=== PATIENT | male | born 2000 | race Caucasian/White ===

== ENCOUNTER 2019-01-29 08:18 | Emergency (ER) | payer OTHER ==
[~2019-01-29] VITALS: Ht 188 cm; Wt 84.1 kg
[2019-01-29] MEDS ORDERED: KETOROLAC 30 MG/ML VIAL (J1885) IV ONE (09:45)
--- NOTE | 2019-01-29 10:02 | REP ---
Chest x-ray: Two views. History: Chest pain . Comparison study: No comparison . Findings: The lungs are well inflated and free of infiltrate. The pleural angles are sharp. The heart size is normal. Pulmonary vasculature is not increased. No significant bony abnormality is seen. Impression: Negative chest x-ray. Electronically Signed by Kaiser Regalado MD 01/29/2019 09:52 A
[2019-01-29 10:04] LABS: BASO # 0.1 10^3/uL (0.0-0.2); BASO % 1.4 % (0.0-1.0); EOS # 0.2 10^3/uL (0.0-0.50); EOS % 2.9 % (0.0-3.0); HEMATOCRIT 43.9 % (42.0-52.0); LYMPH # 2.4 10^3/uL (1.5-6.5); LYMPH % 36.4 % (24.0-44.0); MEAN CORPUSCULAR HEMOGLOBIN 29.4 pg (27.0-33.0); MEAN CORPUSCULAR HGB CONC 31.9 g/dl (32.0-36.5); MEAN CORPUSCULAR VOLUME 92.2 fl (80.0-96.0); MONO # 0.4 10^3/uL (0.0-0.8); MONO % 6.5 % (0.0-5.0); NEUTROPHILS # 3.5 10^3/uL (1.8-7.7); NEUTROPHILS % 52.6 % (36.0-66.0); PLATELET COUNT, AUTOMATED 292 10^3/uL (150-450); RED BLOOD COUNT 4.76 10^6/uL (4.30-6.10); WHITE BLOOD COUNT 6.6 10^3/uL (4.0-10.0)
[2019-01-29 10:38] LABS: ALBUMIN 4.5 GM/DL (3.2-5.2); ALT/SGPT 16 U/L (12-78); BILIRUBIN,DIRECT 0.2 MG/DL (0.0-0.2); BILIRUBIN,TOTAL 0.7 MG/DL (0.2-1.0); BLOOD UREA NITROGEN 17 MG/DL (7-18); CALCIUM LEVEL 9.9 MG/DL (8.5-10.1); CARBON DIOXIDE LEVEL 31 MEQ/L (21-32); CHLORIDE LEVEL 104 MEQ/L (98-107); CK-MB VALUE MASS < 1.0 NG/ML (<3.6); CPK CREATINE PHOSPHOKINASE 68 U/L (39-308); GLUCOSE, FASTING 83 MG/DL (70-100); LIPASE 96 U/L (73-393); MB/CK RELATIVE INDEX 1.47 (< OR =4); NT-PRO BNP 23 PG/ML (<125); POTASSIUM SERUM 4.6 MEQ/L (3.5-5.1); SODIUM LEVEL 139 MEQ/L (136-145); TOTAL PROTEIN 8.4 GM/DL (6.4-8.2); TROPONIN I < 0.02 NG/ML (< 0.10)
[2019-01-29 11:11] VITALS: BP 115/78
--- NOTE | 2019-01-29 20:57 | ECGEPIP ---
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
== END 2019-01-29 11:12 | disposition home or self-care (01) ==
LOC: M ED 08:18
DX: R07.89 Other chest pain (principal)
CPT/HCPCS: 71046; 80048; 80076; 82550; 82553; 83690; 83880; 84443; 84484; 85025; 85379; 93005; 96374; 99284; J1885

== ENCOUNTER 2019-06-10 17:55 | Emergency (ER) | payer OTHER ==
[~2019-06-10] VITALS: Ht 188 cm; Wt 97.4 kg
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
[2019-06-10 19:43] VITALS: BP 122/68
== END 2019-06-10 19:47 | disposition home or self-care (01) ==
LOC: M ED 17:55
DX: M25.511 Pain in right shoulder (principal); X50.9XXA Other and unspecified overexertion or strenuous movements or postures, initial encounter; Y92.89 Other specified places as the place of occurrence of the external cause; Y93.9 Activity, unspecified; Y99.0 Civilian activity done for income or pay; M79.601 Pain in right arm

== ENCOUNTER → 2020-08-27 | Outpatient (CLI) | payer SELFPAY | LOC: M LABSMTC 13:06 | PROVIDERS: ATTEND Pediatrics | DX: Z20.828 Contact with and (suspected) exposure to other viral communicable diseases (principal) ==

== ENCOUNTER → 2020-10-22 | Outpatient (CLI) | payer SELFPAY | LOC: M LABSMTC 11:15 | PROVIDERS: ATTEND Pediatrics | DX: Z20.822 Contact with and (suspected) exposure to COVID-19 (principal) ==

== ENCOUNTER 2020-12-03 23:58 | Emergency (ER) | payer OTHER ==
[~2020-12-03] VITALS: Ht 188 cm; Wt 102.9 kg
[2020-12-04 01:21] LABS: BASO # 0.1 10^3/uL (0.0-0.2); BASO % 0.9 % (0.0-1.0); EOS # 0.3 10^3/uL (0.0-0.5); EOS % 3.6 % (0.0-3.0); HEMATOCRIT 39.9 % (42.0-52.0); HEMOGLOBIN 12.9 g/dl (13.5-17.5); LYMPH # 2.2 10^3/uL (1.5-5.0); LYMPH % 27.1 % (24.0-44.0); MEAN CORPUSCULAR HEMOGLOBIN 30.2 pg (27.0-33.0); MEAN CORPUSCULAR HGB CONC 32.3 g/dl (32.0-36.5); MEAN CORPUSCULAR VOLUME 93.4 fl (80.0-96.0); MONO # 0.7 10^3/uL (0.0-0.8); MONO % 8.8 % (2.0-8.0); NEUTROPHILS # 4.8 10^3/uL (1.5-8.5); NEUTROPHILS % 59.2 % (36.0-66.0); PLATELET COUNT, AUTOMATED 283 10^3/uL (150-450); RED BLOOD COUNT 4.27 10^6/uL (4.30-6.10); WHITE BLOOD COUNT 8.1 10^3/uL (4.0-10.0)
[2020-12-04 01:46] LABS: ALBUMIN 3.9 GM/DL (3.2-5.2); ALT/SGPT 28 U/L (12-78); BILIRUBIN,DIRECT 0.1 MG/DL (0.0-0.2); BILIRUBIN,TOTAL 0.3 MG/DL (0.2-1.0); BLOOD UREA NITROGEN 16 MG/DL (7-18); CALCIUM LEVEL 8.7 MG/DL (8.5-10.1); CARBON DIOXIDE LEVEL 27 MEQ/L (21-32); CHLORIDE LEVEL 106 MEQ/L (98-107); CREATININE FOR GFR 0.83 MG/DL (0.70-1.30); GLOMERULAR FILTRATION RATE > 60.0 (>60); GLUCOSE, FASTING 93 MG/DL (70-100); SODIUM LEVEL 139 MEQ/L (136-145); TOTAL PROTEIN 7.9 GM/DL (6.4-8.2)
[2020-12-04 02:15] VITALS: BP 126/65
--- NOTE | 2020-12-04 06:48 | ECGEPIP ---
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
== END 2020-12-04 02:23 | disposition home or self-care (01) ==
LOC: M ED 23:58
DX: R07.89 Other chest pain (principal)

== ENCOUNTER 2020-12-25 06:32 | Emergency (ER) | payer OTHER ==
[~2020-12-25] VITALS: Ht 188 cm; Wt 102.7 kg
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
[2020-12-25] MEDS ORDERED: NAPROXEN 250 MG TAB PO ONE (08:40)
[2020-12-25 08:59] VITALS: O2SAT 99
[2020-12-25] MEDS ORDERED: NAPR-837 PO (09:10)
[2020-12-25 09:26] VITALS: BP 135/78
--- NOTE | 2020-12-26 10:14 | ED PDOC ---
Post-Departure Follow-Up radiology report faxed to [facility] Mikayla Jose MD Dec 26, 2020 10:14
== END 2020-12-25 09:30 | disposition home or self-care (01) ==
LOC: M ED 06:32
DX: S43.102A Unspecified dislocation of left acromioclavicular joint, initial encounter (principal); S16.1XXA Strain of muscle, fascia and tendon at neck level, initial encounter; V48.5XXA Car driver injured in noncollision transport accident in traffic accident, initial encounter; Y92.9 Unspecified place or not applicable; Y93.9 Activity, unspecified; Y99.9 Unspecified external cause status

== ENCOUNTER 2021-04-13 09:56 | Day surgery (SDC) | payer OTHER ==
[~2021-04-13] VITALS: Ht 188 cm; Wt 110.1 kg
[~2021-04-13 09:56] MED LIST: HYDR50TA70 PO; NAPR-837 PO; NS 1,000 ML IV ONE; VITA1CAP25 PO
[2021-04-13] MEDS ORDERED: LIDOCAINE 2% 100MG/5ML SDV (FOR ANES.) As Ordered ONE (11:41)
[2021-04-13] MEDS ORDERED: fentaNYL 100 MCG/2 ML INJECTION (J3010) As Ordered ONE (11:41)
[2021-04-13] MEDS ORDERED: propofoL 200 MG/20 ML VIAL As Ordered ONE ×3 (11:41→12:29)
--- NOTE | 2021-04-13 12:57 | ROOR ---
Patient Name: Melissa Garcia Procedure Date: 04/13/2021 12:21 PM Date of : 2000 Age: 20 Room: [facility] Gender: Male Note Status: Finalized Procedure: Upper GI endoscopy Indications: Nausea with vomiting Providers: Eder Alexander MD Referring MD: FREDERICK MACK MD Requesting Provider: Medicines: Monitored Anesthesia Care Complications: No immediate complications. Procedure: Pre-Anesthesia Assessment: - Prior to the procedure, a History and Physical was performed, and patient medications and allergies were reviewed. The patient is competent. The risks and benefits of the procedure and the sedation options and risks were discussed with the patient. All questions were answered and informed consent was obtained. Patient identification and proposed procedure were verified by the physician, the nurse and the anesthesiologist in the procedure room. Mental Status Examination: alert and oriented. Airway Examination: normal oropharyngeal airway and neck mobility. Respiratory Examination: clear to auscultation. CV Examination: normal. Prophylactic Antibiotics: The patient does not require prophylactic antibiotics. Prior Anticoagulants: The patient has taken no previous anticoagulant or antiplatelet agents. ASA Grade Assessment: II - A patient with mild systemic disease. After reviewing the risks and benefits, the patient was deemed in satisfactory condition to undergo the procedure. The anesthesia plan was to use monitored anesthesia care (MAC). Immediately prior to administration of medications, the patient was re-assessed for adequacy to receive sedatives. The heart rate, respiratory rate, oxygen saturations, blood pressure, adequacy of pulmonary ventilation, and response to care were monitored throughout the procedure. The physical status of the patient was re-assessed after the procedure. The Endoscope was introduced through the mouth, and advanced to the second part of duodenum. The upper GI endoscopy was accomplished without difficulty. The patient tolerated the procedure well. Findings: The Z-line was irregular and was found 40 cm from the incisors. Scattered mild inflammation characterized by erythema, friability and granularity was found in the gastric antrum. Biopsies were taken with a cold forceps for Helicobacter pylori testing. Verification of patient identification for the specimen was done by the physician and nurse using the patient's name, date and medical record number. Estimated blood loss was minimal. The duodenal bulb and second portion of the duodenum were normal. Biopsies for histology were taken with a cold forceps for evaluation of celiac disease. Impression: - Z-line irregular, 40 cm from the incisors. - Gastritis. Biopsied. - Normal duodenal bulb and second portion of the duodenum. Biopsied. Recommendation: - Patient has a contact number available for emergencies. The signs and symptoms of potential delayed complications were discussed with the patient. Return to normal activities tomorrow. Written discharge instructions were provided to the patient. - High fiber diet. - Continue present medications. - Await pathology results. - Follow an antireflux regimen. - Telephone GI clinic for pathology results in 2 weeks. - Return to GI clinic if persistent symptoms or new symptoms. - Return to primary care physician. Procedure Code(s): --- Professional --- 78633, Esophagogastroduodenoscopy, flexible, transoral; with biopsy, single or multiple Diagnosis Code(s): --- Professional --- K22.8, Other specified diseases of esophagus K29.70, Gastritis, unspecified, without bleeding R11.2, Nausea with vomiting, unspecified CPT copyright 2019 [employer]. All rights reserved. The codes documented in this report are preliminary and upon extractor puller review may be revised to meet current compliance requirements. Eder Alexander MD Eder Alexander MD 04/13/2021 12:57:06 PM Electronically signed by Eder Alexander MD Number of Addenda: 0 Note Initiated On: 04/13/2021 12:21 PM Estimated Blood Loss: Estimated blood loss was minimal.
[2021-04-13 13:10] VITALS: BP 122/78
--- NOTE | 2021-04-13 13:30 | ROOR ---
Patient Name: Melissa Garcia Procedure Date: 04/13/2021 12:22 PM Date of : 2000 Age: 20 Room: [facility] Gender: Male Note Status: Finalized Procedure: Colonoscopy Indications: Hematochezia, Change in bowel habits Providers: Eder Alexander MD Referring MD: FREDERICK MACK MD Requesting Provider: Medicines: Monitored Anesthesia Care Complications: No immediate complications. Procedure: Pre-Anesthesia Assessment: - Prior to the procedure, a History and Physical was performed, and patient medications and allergies were reviewed. The patient is competent. The risks and benefits of the procedure and the sedation options and risks were discussed with the patient. All questions were answered and informed consent was obtained. Patient identification and proposed procedure were verified by the physician and the nurse in the procedure room. Mental Status Examination: alert and oriented. Airway Examination: normal oropharyngeal airway and neck mobility. Respiratory Examination: clear to auscultation. CV Examination: normal. Prophylactic Antibiotics: The patient does not require prophylactic antibiotics. Prior Anticoagulants: The patient has taken no previous anticoagulant or antiplatelet agents. ASA Grade Assessment: II - A patient with mild systemic disease. After reviewing the risks and benefits, the patient was deemed in satisfactory condition to undergo the procedure. The anesthesia plan was to use monitored anesthesia care (MAC). Immediately prior to administration of medications, the patient was re-assessed for adequacy to receive sedatives. The heart rate, respiratory rate, oxygen saturations, blood pressure, adequacy of pulmonary ventilation, and response to care were monitored throughout the procedure. The physical status of the patient was re-assessed after the procedure. The Colonoscope was introduced through the anus and advanced to the terminal ileum, with identification of the appendiceal orifice and IC valve. The colonoscopy was performed without difficulty. The patient tolerated the procedure well. The quality of the bowel preparation was poor. The terminal ileum, ileocecal valve, appendiceal orifice, and rectum were photographed. Scope insertion time was 2 minutes. Scope withdrawal time was 8 minutes. The total duration of the procedure was 10 minutes. Findings: The perianal and digital rectal examinations were normal. The terminal ileum appeared normal. A moderate amount of stool was found from sigmoid to ascending colon, interfering with visualization. Lavage of the area was performed using a large amount of sterile water, resulting in incomplete clearance with continued poor visualization. There is no endoscopic evidence of mass, stricture or ulcerations in the entire colon. Non-bleeding external and internal hemorrhoids were found during retroflexion. The hemorrhoids were small. Impression: - Preparation of the colon was poor. - The examined portion of the ileum was normal. - Stool from sigmoid to ascending colon. - Non-bleeding external and internal hemorrhoids. - No specimens collected. Recommendation: - Patient has a contact number available for emergencies. The signs and symptoms of potential delayed complications were discussed with the patient. Return to normal activities tomorrow. Written discharge instructions were provided to the patient. - High fiber diet. - Continue present medications. - Use fiber, for example Citrucel, Fibercon, Konsyl or Metamucil. - Repeat colonoscopy at age 49 for screening purposes. - Return to GI clinic if persistent symptoms or new symptoms. - Return to primary care physician. Procedure Code(s): --- Professional --- 00159, Colonoscopy, flexible; diagnostic, including collection of specimen(s) by brushing or washing, when performed (separate procedure) Diagnosis Code(s): --- Professional --- K64.8, Other hemorrhoids K92.1, Melena (includes Hematochezia) R19.4, Change in bowel habit CPT copyright 2019 [employer]. All rights reserved. The codes documented in this report are preliminary and upon service greeter review may be revised to meet current compliance requirements. Eder Alexander MD Eder Alexander MD 04/13/2021 1:30:13 PM Electronically signed by Eder Alexander MD Number of Addenda: 0 Note Initiated On: 04/13/2021 12:22 PM Estimated Blood Loss: Estimated blood loss was minimal.
== END 2021-04-13 13:35 | disposition home or self-care (01) ==
LOC: M OPP 09:56
PROVIDERS: ATTEND Internal Medicine Gastroenterology
DX: K92.1 Melena (principal); K64.8 Other hemorrhoids; R19.4 Change in bowel habit; K22.8 Other specified diseases of esophagus; K29.70 Gastritis, unspecified, without bleeding; Z87.19 Personal history of other diseases of the digestive system; F17.290 Nicotine dependence, other tobacco product, uncomplicated
CPT/HCPCS: 43239; 45378; 88305; J3010

== ENCOUNTER 2021-11-19 22:19 | Emergency (ER) | payer OTHER, SELFPAY ==
[~2021-11-19] VITALS: Ht 188 cm; Wt 109.1 kg
[~2021-11-19 22:19] MED LIST changes: -NS 1,000 ML IV ONE
[2021-11-19 22:55] LABS: HEMATOCRIT 42.8 % (42.0-52.0); HEMOGLOBIN 14.1 g/dl (13.5-17.5); MEAN CORPUSCULAR HEMOGLOBIN 29.6 pg (27.0-33.0); MEAN CORPUSCULAR HGB CONC 32.9 g/dl (32.0-36.5); MEAN CORPUSCULAR VOLUME 89.9 fl (80.0-96.0); PLATELET COUNT, AUTOMATED 298 10^3/uL (150-450); RED BLOOD COUNT 4.76 10^6/uL (4.30-6.10); WHITE BLOOD COUNT 9.5 10^3/uL (4.0-10.0)
[2021-11-19 23:29] LABS: ACETAMINOPHEN LEVEL < 2.0 UG/ML (10.0-30.0); ALBUMIN 4.4 GM/DL (3.2-5.2); ALT/SGPT 35 U/L (12-78); BILIRUBIN,DIRECT 0.2 MG/DL (0.0-0.2); BILIRUBIN,TOTAL 0.4 MG/DL (0.2-1.0); BLOOD UREA NITROGEN 13 MG/DL (7-18); CALCIUM LEVEL 9.4 MG/DL (8.5-10.1); CARBON DIOXIDE LEVEL 28 MEQ/L (21-32); CHLORIDE LEVEL 106 MEQ/L (98-107); CREATININE FOR GFR 0.95 MG/DL (0.70-1.30); ETHYL ALCOHOL (ETHANOL) < 0.003 % (0.000-0.010); GLOMERULAR FILTRATION RATE > 60.0 (>60); GLUCOSE, FASTING 83 MG/DL (70-100); POTASSIUM SERUM 3.9 MEQ/L (3.5-5.1); SALICYLATE LEVEL < 1.7 MG/DL (5.0-30.0); SODIUM LEVEL 138 MEQ/L (136-145); TOTAL PROTEIN 8.7 GM/DL (6.4-8.2)
[2021-11-20 00:46] LABS: AMPHETAMINES LEVEL URINE NEGATIVE (NEGATIVE); BARBITURATES URINE NEGATIVE (NEGATIVE); BENZODIAZEPINES URINE NEGATIVE (NEGATIVE); CANNABINOIDS URINE NEGATIVE (NEGATIVE); COCAINE METABOLITE URINE NEGATIVE (NEGATIVE); METHADONE URINE NEGATIVE (NEGATIVE); OPIATES URINE NEGATIVE (NEGATIVE); PHENCYCLIDINE URINE NEGATIVE (NEGATIVE)
[2021-11-20 02:32] LABS: RSV AMPLIFICATION NEGATIVE (NEGATIVE)
[2021-11-20] MEDS ORDERED: HOME MED LIST COMPLETE! XX SCH (12:35)
[2021-11-20 16:05] VITALS: BP 136/62
== END 2021-11-20 16:10 | disposition short-term general hospital (02) ==
LOC: M ED 22:19
DX: R45.851 Suicidal ideations (principal); F43.0 Acute stress reaction; F17.200 Nicotine dependence, unspecified, uncomplicated; Z63.0 Problems in relationship with spouse or partner